=== PATIENT | male | born 1945 | race Caucasian/White ===

== ENCOUNTER 2023-06-10 21:53 | Emergency (ER) | payer MEDICARE ==
[~2023-06-10] VITALS: Ht 170.2 cm; Wt 85.0 kg
[2023-06-10 22:04] VITALS: BP 185/87; TEMP 97.5; O2SAT 99
[2023-06-10] MEDS ORDERED: diphenhydrAMINE 50MG/ML VIAL IV ONE (22:10)
[2023-06-10] MEDS ORDERED: FAMOTIDINE 20MG/2ML VIAL IVP ONE (22:10)
[2023-06-10] MEDS ORDERED: methylPREDNISolone 125MG 2ML VIAL IV ONE (22:10)
[2023-06-10] MEDS ORDERED: LIDOCAINE 1% MDV 20ML VIAL SC ONE (22:15)
[2023-06-10] MEDS ORDERED: BOOSTRIX VACCINE (TETANUS/DIPHTH/ACEL. PERTUSSIS) 0.5ML SYR IM.IMMUN ONE (22:20)
[2023-06-10 22:29] LABS: BASO # 0.1 10^3/uL (0.0-0.2); BASO % 0.9 % (0.0-1.0); EOS # 0.2 10^3/uL (0.0-0.5); EOS % 3.6 % (0.0-3.0); HEMATOCRIT 39.2 % (42.0-52.0); HEMOGLOBIN 12.5 g/dl (13.5-17.5); LYMPH # 2.3 10^3/uL (1.5-5.0); LYMPH % 34.2 % (24.0-44.0); MEAN CORPUSCULAR HEMOGLOBIN 29.2 pg (27.0-33.0); MEAN CORPUSCULAR HGB CONC 31.9 g/dl (32.0-36.5); MEAN CORPUSCULAR VOLUME 91.6 fl (80.0-96.0); MONO # 0.5 10^3/uL (0.0-0.8); MONO % 7.4 % (2.0-8.0); NEUTROPHILS # 3.5 10^3/uL (1.5-8.5); NEUTROPHILS % 53.6 % (36.0-66.0); PLATELET COUNT, AUTOMATED 146 10^3/uL (150-450); RED BLOOD COUNT 4.28 10^6/uL (4.30-6.10); WHITE BLOOD COUNT 6.6 10^3/uL (4.0-10.0)
[2023-06-10 22:50] LABS: BLOOD UREA NITROGEN 16 MG/DL (9-23); CALCIUM LEVEL 8.6 MG/DL (8.3-10.6); CARBON DIOXIDE LEVEL 26 MMOL/L (20-31); CHLORIDE LEVEL 104 MMOL/L (98-107); CREATININE FOR GFR 0.94 MG/DL (0.70-1.30); GLOMERULAR FILTRATION RATE > 60.0 (>42); GLUCOSE, FASTING 133 MG/DL (74-106); POTASSIUM SERUM 3.6 MMOL/L (3.5-5.1); SODIUM LEVEL 139 MMOL/L (136-145)
== END 2023-06-11 01:10 | disposition home or self-care (01) ==
LOC: M ED 21:53 → EDBD 21:53 → M ED 06-11 01:10
DX: T78.40XA Allergy, unspecified, initial encounter (principal); S81.812A Laceration without foreign body, left lower leg, initial encounter; I44.4 Left anterior fascicular block; J45.909 Unspecified asthma, uncomplicated; K21.9 Gastro-esophageal reflux disease without esophagitis; E78.5 Hyperlipidemia, unspecified; Z86.79 Personal history of other diseases of the circulatory system; Z88.1 Allergy status to other antibiotic agents; Z91.013 Allergy to seafood; Z23 Encounter for immunization
CPT/HCPCS: 12001; 80048; 85025; 90471; 90715; 93005; 93041; 94760; 96372; 96374; 99284; J1200; J2930